=== PATIENT | male | born 1955 | race Caucasian/White ===

== ENCOUNTER 2024-02-21 04:43 | Inpatient (IN) | payer MEDICARE, BC, SELFPAY ==
[2024-02-21] VITALS (8 sets, daily range): BP systolic 125–167; BP diastolic 74–104; BMI 28.1; BMI 27.1
[2024-02-21] MEDS: DUONEB 3 ML INH ×3 (01:14→08:31)
[2024-02-21] MEDS: DECADRON 10 MG IV (01:30)
[2024-02-21 01:52] LABS: % Basophils 0.1 % (0-2); % Immature Granulocytes 0.4 % (0-0.5); % Lymphocytes 3.7 % (20.5-51.1); % Monocytes 5.8 % (1.7-9.3); Absolute Immature Granulocytes 0.1 10^3/uL (0-0.05); Absolute Lymphocytes 0.5 10^3/uL (1.2-3.4); Absolute Monocytes 0.8 10^3/uL (0.1-0.6); Absolute Neutrophils 12.5 10^3/uL (1.4-6.5); Hematocrit 42.9 % (39.0-52.0); Hemoglobin 14.6 g/dL (13.0-18.0); Mean Corpuscular Hgb 29.9 pg (27.0-31.0); Mean Corpuscular Volume 87.9 fL (80.0-94.0); Mean Platelet Volume 10.5 fL (7.4-10.4); Nucleated Red Blood Cells % 0 % (-); Platelet Count 240 10^3/uL (130-400); Red Blood Cell Count 4.88 10^6/uL (4.70-6.10); Red Cell Dist. Width 13.3 % (11.5-14.5); White Blood Cell Count 13.9 10^3/uL (4.8-10.8)
[2024-02-21 02:05] LABS: ALT (SGPT) 45 U/L (0-50); AST (SGOT) 43 U/L (17-59); Albumin 4.6 g/dl (3.5-5.0); Alkaline Phosphatase 89 U/L (38-126); Blood Urea Nitrogen 19 mg/dl (9-20); Calcium 10.1 mg/dl (8.4-10.2); Carbon Dioxide 24 mmol/L (22-30); Chloride 106 mmol/L (98-107); Estimated Creatinine Clearance 87 ml/min; Glucose 123 mg/dl (70-99); Potassium 4.4 mmol/L (3.5-5.1); Sodium 141 mmol/L (135-145); Total Bilirubin 0.3 mg/dl (0.2-1.3); Total Protein 7.3 g/dl (6.3-8.2); eGFR > 60.00
[2024-02-21 02:07] LABS: COVID-19 Antigen Negative (Negative)
--- NOTE | 2024-02-21 02:25 | ED.GENMED ---
History of Present Illness
General
Chief Complaint: Breathing Problem
Source: patient and spouse
Exam Limitations: none
Time Seen by Provider: 02/21/24 01:15
Nursing documentation reviewed up to this point in time: agreed with
Travel History
Have you had any contact with someone who has COVID-19?: No
Do you have any symptoms of coronavirus? Fever > 100 degrees, chills, cough, shortness of breath, sore throat, loss of taste or smell, muscle aches, or headache?: No
History of Present Illness
History of Present Illness:
68-year-old male shortness of breath cough for few days spouse had a URI with some fevers patient fever, uses neb x 3 today, without much relief has history of COPD not on oxygen or steroids chronically, sees pulmonary no longer smoking no calf pain
no chest pain
Past History
Past History
ED Past Medical History: Asthma, COPD and Hypercholesterolemia
ED Past Surgical History: Other (hernia repair)
Social History
Tobacco: Former smoker
Alcohol: None
Drug: None
Personal:
Living: with family
Employment: Employed
Family History
Family History: Other (Noncontributory)
Review of Systems
Review of Systems
All Other Systems: Not applicable
Constitutional: Denies fever
Respiratory: Reports cough and trouble breathing
Cardiac: Reports no symptoms
ABD/GI: Reports no symptoms
: Reports no symptoms
Musculoskeletal: Reports no symptoms
Skin: Reports no symptoms
Neurological: Reports no symptoms
Phy Exam
Physical Exam
Physical Exam:
Physical Exam
General: 68 male appears dyspneic retracting wheezing
Neck: No jaundice
Heart: Regular
Lungs: Wheezing right greater than left with
Abdomen: Nontender
Neuro: alert and oriented. no focal neurological deficits
Skin: no rash
Psychiatric: well kept. interactive and cooperative
Extremities: no edema. no calf tenderness.
Scores
Heart Failure Risk
Heart Failure Risk Score: Not Applicable
Course
Orders/Labs/Results
Orders:
Orders
02/21/24 01:12
Ipratropium/Albuterol Sulfate [Duoneb] 3 ml .ROUTE .STK-MED ONE
02/21/24 01:13
Ipratropium/Albuterol Sulfate [Duoneb] 3 ml INH R NOW ONE
02/21/24 01:15
Electrocardiogram (*1) Stat
Reason for Study: Other
Other Reason for Exam: pneumonia
Cardiac Monitoring- Treatment ONCE
EKG- Treatment ONCE
IV Insert/Care/Rem.- Treatment PRN
Dexamethasone Sod Phosphate [Decadron] 10 mg IV NOW STA
Ipratropium/Albuterol Sulfate [Duoneb] 3 ml INH R NOW STA
CR Chest Portable - 1 View Urgent
Comment:
Reason For Exam: SOB
Reason Study Needs to be Portable: Patient Unstable
02/21/24 01:26
COVID-19 Antigen Urgent
Source: Nasal Swab
Complete Blood Count/With Diff Urgent
Comprehensive Metabolic Panel Urgent
Influenza A+B Rapid Molecular Urgent
TRIXIE Source: Nasal Swab
Specimen Description:
Abnormal Lab Results
02/21/24
01:26
WBC 13.9 H 10^3/uL
(4.8-10.8)
MPV 10.5 H fL
(7.4-10.4)
Abs Immat Gran (auto) 0.1 H 10^3/uL
(0-0.05)
Absolute Neuts (auto) 12.5 H 10^3/uL
(1.4-6.5)
Absolute Lymphs (auto) 0.5 L 10^3/uL
(1.2-3.4)
Absolute Monos (auto) 0.8 H 10^3/uL
(0.1-0.6)
Neutrophils % 90.0 H %
(42.2-75.2)
Lymphocytes % 3.7 L %
(20.5-51.1)
Glucose 123 H mg/dl
(70-99)
02/21/24 01:26
02/21/24 01:26
Vital Signs
Initial and Last Documented VS:
Initial Vital Signs
Temp Pulse Resp BP Pulse Ox
98.3 F 102 28 167/86 93
02/21/24 00:53 02/21/24 00:53 02/21/24 00:53 02/21/24 00:53 02/21/24 00:53
Last Documented Vital Signs
Temp Pulse Resp BP Pulse Ox
98.6 F 94 17 153/104 93
02/21/24 01:10 02/21/24 02:00 02/21/24 02:00 02/21/24 02:00 02/21/24 02:00
MDM/Problems Addressed
Differential Diagnosis Includes:
COPD pneumonia pneumothorax less likely pulmonary
MDM/Problems Addressed:
Shortness of breath cough
Chronic conditions affecting care: COPD
Acute Exacerbation and/or Progression of Chronic Illness: COPD
*Radiology
Radiology exam reviewed: preliminary read by ED provider
*Pulse Oximetry
Patient hypoxic: yes
*EKG
Interpreted by ED Provider?: Yes
Interpretation: abnormal
Comparison EKG: no comparison EKG present
Heart Rate: 78
Rate: normal
Rhythm: sinus
Ischemia: non-specific ST changes
*Vault Attendant Interpretation
Rate: normal
Interpretation: normal
Heart Rate: 78
Rhythm: sinus
*Critical Care Note
Total Time (30-74mins, 75-104mins- exclusive of procedures): Not Applicable
Patient Management
Social determinants of health affecting care: Living situation
Discussion with other providers: Hospitalist
Escalation/DeEscalation of care consider admission/obs:
Patient with significant bronchospasm 3 nebs at home tachypneic tachycardic retracting, will require admission started on IV steroids supplemental oxygen
Update Note
Update Note:
Patient better after nebs and steroids still tachypneic requiring oxygen will require admission
ED Attending Note
-
Portions of this chart may have been created with voice recognition software.� Occasional wrong word or��sound alike� substitutions may have occurred due to the inherent limitations of voice recognition software.
Discharge Plan
Departure
Patient Disposition: Admit
Date of Disposition: 02/21/24
Time of Disposition: 02:28
Admit to: Med/Surg
Presentation/result/management discussed w/ accepting MD/DO: Hospitalist
Patient with high blood pressure during this ER visit?: Yes
Condition: Fair
Covid-19: Not Applicable
Discharge Problem:
Acute exacerbation of chronic obstructive pulmonary disease
Prescriptions:
No Action
simvastatin 40 MG tablet
40 mg PO QPM
Anoro Ellipta 1 EACH blister with device
1 puff inhalation DAILY
acetaminophen 500 MG tablet
1,000 mg PO Q6HPRN PRN (Reason: pain)
Rx Instructions:
Do not exceed >4000 mg daily.
Interventions
Interventions:
*Risk Screen - Suicide Last Done: 02/21/24 01:15
*General Assessment Last Done: 02/21/24 01:15
*Neglect/Abuse Screening Last Done: 02/21/24 01:15
*ED COVID-19 Vaccine History Last Done: 02/21/24 01:15
ED- Cardiac Assessment Last Done: 02/21/24 01:10
ED- Pulmonary Assessment Last Done: 02/21/24 01:10
Discharge Date and Time
Print Language: LUXEMBOURGISH
--- NOTE | 2024-02-21 05:05 | HPS.HSE ---
Family Physician
-
Family Physician: Sherwin Vargas
Chief Complaint
-
SOB and cough
History of Present Illness
68M former smoker HX COPD/Asthma, not on home O2 pw fever at home pe SoB and cough. He used home Nebs but no relief.
POS sick exposure to with URTI.
Productive cough; brownish sputum in AM, but clear in the evening
[place] better after Nebs and IV Decadron at ER
@ ER . POx low 90s and require 3 L O2
Medical History
Past Medical History
Past Medical History: Reports Asthma, COPD and Hypercholesterolemia
Past Surgical History: Reports None
Social History
Tobacco: Former Smoker
Alcohol: None
Drug: None
Personal:
Living: With Family
Family History
Family History: Not pertinent
Allergies / Home Medications
Allergies reflects when Allergies were last updated in [facility].
Home Medications with original date entered in [facility]
Allergy/Medication List:
Allergies
Allergy/AdvReac Type Severity Reaction Status Date / Time
No Known Allergies Allergy Verified 02/21/24 00:53
Home Medications
simvastatin 40 mg tablet 40 mg PO QPM 09/11/15
umeclidinium 62.5 mcg-vilanterol 25 mcg/actuation powdr for inhalation (Anoro Ellipta) 1 puff inhalation DAILY 11/04/20
acetaminophen 500 mg tablet 1,000 mg PO Q6HPRN PRN pain 02/21/24
Review of Systems
-
Constitutional: Reports No Symptoms
EENT: Reports No Symptoms
Respiratory: Reports See HPI
Cardiac: Reports No Symptoms
Abdomen/GI: Reports No Symptoms
: Reports No Symptoms
Musculoskeletal: Reports No Symptoms
Skin: Reports No Symptoms
Neurological: Reports No Symptoms
Endocrine: Reports No Symptoms
Hematologic/Lymphatic: Reports No Symptoms
Psych: Reports No Symptoms
Physical Exam
Vital Signs
Vital Signs
Temp Pulse Resp BP Pulse Ox
98.6 F 77 21 125/78 94
02/21/24 01:10 02/21/24 04:00 02/21/24 04:00 02/21/24 04:00 02/21/24 04:00
Physical Exam
General: No Apparent Distress, Comfortable and Conversant
HEENT: NormoCephalic and Moist mucous membranes
Respiratory: Wheezes (b/l expiratory phade ); No Rales
Cardiac: S1/S2 and Regular Rhythm; No Tachycardia
Breast: Deferred by me
GI: Soft, Non Tender, Non Distended and Normal Bowel Sounds
Rectal: Deferred by Provider
Genito-urinary: Deferred by me
Musculoskeletal: No Edema
Skin: Warm and Dry
Neuro: AO x 3
Psych: Calm
Laboratory Results
-
Laboratory Results
Total Bilirubin 0.3 mg/dl (0.2-1.3) 02/21/24 01:26
AST 43 U/L (17-59) 02/21/24 01:26
ALT 45 U/L (0-50) 02/21/24 01:26
Alkaline Phosphatase 89 U/L (38-126) 02/21/24 01:26
Data Reviewed
-
Diagnostic Radiology: Image Personally Visualized and interpreted
Lab Data: Labs Reviewed by me
Impression/Plan
-
Reviewed VS: afebrile HR hi 90s BP 150/105 RR 20-25 POx 93 % on 3 L
Data
WCC 13.9
nl CMP
NEG Covid
CXR my view : no gross CHF or PNA
ASSESSMENT & PLAN
AE COPD
Associated acute Hypoxic RI require NC O2 3 L
- NEG CXR in my view
- agree with IV decadron 4 mg q8
- DuoNeb qid and PRN
- Hold off ABx
- Pul consult
HLD
- cont simvastatin
DVT Px: LMWH
Code: Full
IP MS
[2024-02-21 05:55] LABS: % Basophils 0.1 % (0-2); % Eosinophils 0.1 % (0-6); % Immature Granulocytes 0.4 % (0-0.5); % Lymphocytes 1.9 % (20.5-51.1); % Monocytes 2.3 % (1.7-9.3); % Neutrophils 95.2 % (42.2-75.2); Absolute Immature Granulocytes 0.1 10^3/uL (0-0.05); Absolute Lymphocytes 0.3 10^3/uL (1.2-3.4); Absolute Monocytes 0.4 10^3/uL (0.1-0.6); Absolute Neutrophils 14.7 10^3/uL (1.4-6.5); Hematocrit 41.4 % (39.0-52.0); Hemoglobin 13.6 g/dL (13.0-18.0); Mean Corp Hgb Conc. 32.9 g/dL (33.0-37.0); Mean Corpuscular Volume 91.4 fL (80.0-94.0); Mean Platelet Volume 10.5 fL (7.4-10.4); Nucleated Red Blood Cells % 0 % (-); Platelet Count 218 10^3/uL (130-400); Red Blood Cell Count 4.53 10^6/uL (4.70-6.10); Red Cell Dist. Width 13.5 % (11.5-14.5); White Blood Cell Count 15.5 10^3/uL (4.8-10.8)
[2024-02-21 06:11] LABS: Blood Urea Nitrogen 18 mg/dl (9-20); Calcium 9.8 mg/dl (8.4-10.2); Carbon Dioxide 22 mmol/L (22-30); Chloride 109 mmol/L (98-107); Estimated Creatinine Clearance 100 ml/min; Glucose 138 mg/dl (70-99); Potassium 4.6 mmol/L (3.5-5.1); Sodium 137 mmol/L (135-145); eGFR > 60.00
[2024-02-21] MEDS: DECADRON 4 MG IV ×3 (08:19→23:43)
[2024-02-21] MEDS: SPIRIVA RESPIMAT 2.5 MCG INH (08:30)
[2024-02-21] MEDS: STRIVERDI RESPIMAT 2 PUFF INH (08:31)
--- NOTE | 2024-02-21 09:10 | CON.PUL ---
Consultation
Consultation Request
Date/Time Consultation Requested: 02/21/24-7 AM
Date/Time Consultation Performed: 02/21/24-7:30 AM
Requesting Provider: Hospitalist
Performing Provider: Dr. Nath
Reason for Consultation: shortness of breath
Medical History
-
Chief Complaint: Shortness of breath, COPD exacerbation
History of Present Illness:
68-year-old male with a history of COPD/asthma overlap last seen by Dr. Walls November 2022 maintained on Anoro, not inhaled steroids due to 'thrush', not on home oxygen presents with shortness of breath and cough and dyspnea-pulmonary consulted
for COPD exacerbation 02/21/24. He states that he has been ill for several days with chest congestion, green sputum production, difficulties mobilizing secretions, with exposure to who was sick with what sounds like a viral illness and had
progressive dyspnea on exertion. He denies any chest pain, chest tightness, mopped assist, abdominal pain, nausea, weakness or leg swelling.
Past Medical History
Past Medical History: None (COPD/asthma overlap. Recurrent thrush from ICS. Former mikvzj-24-dblr-year quit 34 years old. Hyperlipidemia.)
Social History
Tobacco: Former Smoker (24-bmjr-yusr quit 34 years old)
Alcohol: None
Drug: None
Personal:
Living: With Family
Occupational Exposures: No known asbestos exposure
Environmental Exposures: No known tuberculosis exposure
Family History
Family History: Reviewed & Not Pertinent
Allergies / Home Medications
Allergies
Allergy/AdvReac Type Severity Reaction Status Date / Time
No Known Allergies Allergy Verified 02/21/24 00:53
Home Medications
�Medication �Instructions �Recorded �Confirmed �Last Taken �Type
Vitamin C 1 packet PO DAILY 02/21/24 02/21/24 02/20/24 History
albuterol sulfate 2.5 mg/3 mL 2.5 mg inhalation R Q6HPRN PRN sob 02/21/24 02/21/24 02/20/24 History
(0.083 %) solution for nebulization
atorvastatin 40 mg tablet 40 mg PO HS 02/21/24 02/21/24 02/20/24 History
cholecalciferol (vitamin D3) 125 125 mcg PO DAILY 02/21/24 02/21/24 02/20/24 History
mcg (5,000 unit) tablet
umeclidinium 62.5 mcg-vilanterol 1 inh inhalation R DAILY 02/21/24 02/21/24 02/20/24 History
25 mcg/actuation powdr for
inhalation (Anoro Ellipta)
Review of Systems
-
Unable to Obtain full review of systems at this time due to: Other (Per HPI)
Vitals / Labs / Diagnostic Testing
Vital Signs
Temp Pulse Resp BP Pulse Ox
98.6 F 81 17 125/78 94
02/21/24 01:10 02/21/24 08:34 02/21/24 08:34 02/21/24 04:00 02/21/24 08:34
Lab Data
02/21/24 05:38
02/21/24 05:38
Microbiology
02/21/24 01:26 Nasal Swab Influenza Types A & B (DOMENICO) - Final
Negative for Influenza A & B, NAAT
Negative results must be combined with clinical observations
and patient history.
Nucleic Acid Amplification test (NAAT)performed on the
[employer] platform.
Diagnostic Testing:
Physical Exam
-
Exam:
Well-nourished and well-developed in no apparent distress
HEENT-atraumatic, normocephalic
Neck-supple, no JVD, no bruit
Heart-regular rate and rhythm-no murmurs, rubs or gallops
Chest with diminished breath sounds, prolonged expiratory time, expiratory wheezes and rhonchi and rare crackle at the base
Abdomen-soft, nontender, nondistended, no hepatosplenomegaly
Extremities-no cyanosis, clubbing, edema and good peripheral pulses
Integument-intact, no rashes, lesions or ecchymosis
Neurology-alert and oriented, nonfocal motor and sensory exam
Assessment
-
68-year-old male with a history of COPD/asthma overlap last seen by Dr. Walls November 2022 maintained on Anoro, not inhaled steroids due to 'thrush', not on home oxygen presents with shortness of breath and cough and dyspnea-pulmonary consulted
for COPD exacerbation 02/21/24.
COPD/asthma overlap with acute exacerbation
Leukocytosis-WBC 15.5
Hyperglycemia
Conditions present prior to admission:
COPD/asthma overlap.
Recurrent thrush from ICS.
Pulmonary nodules-negative PET scan and biopsy
Former bvsdks-12-aaav-year quit 34 years old.
Hyperlipidemia.
Hemorrhoids
Nasal polyposis
Diverticulitis
Hernia repair 1984. Right shoulder surgery 2018. Septoplasty.
Plan
Subacute decompensation related to probable viral exposure leading to COPD/asthma overlap with acute exacerbation
Supplemental oxygen as needed
Aspiration precautions
Mucolytic's
Antitussives
Decadron 4 mg IV every 8 hours
Nebulizers as needed
Outpatient Anoro-intolerant to ICS due to recurrent thrush
Sputum culture
Observe off antibiotics
Monitor blood sugar
Insulin supplementation as needed
DVT prophylaxis-on Lovenox
Nutrition
Early mobilization
Last seen by Dr. Walls 12/18/2022-recommend follow-up with full PFTs-patient reports 3 exacerbations yearly requiring steroids-consider addition of Biologics
Diagnostic data:
Chest x-ray 10/12-NAD
Chest x-ray 12/02/2023-NAD
Chest x-ray 02/21/2024-pending
CT chest 04/16/2022-slight decrease in previously biopsied lesion posterior base right lower lobe maximum diameter 1.6, interval decrease in the number of nearly subcentimeter nodules, no new suspicious nodules, minimal changes of centrilobular
emphysema
Pulmonary function testing 12/20/2014:FEV1 /FVC 41%, FEV1 1.47 L-42%, FVC 3.61 L to 79%. Total lung capacity 6.73-96%, residual volume 2.95 L-124%. DLCO 22.31-79%. DLCO/VA 82%. Severe airflow obstruction, no evidence for restriction. Possible air
trapping. Diffusion capacity near normal.
Spirometry 12/18/22- FVC 2.84 or 68%, FEV1 1.46 or 47%, Ratio 51.
Data Reviewed
-
PFT: Report reviewed by me
EKG: Report reviewed by me
Radiology: Image personally visualized and interpreted and Report reviewed by me
CT Scan: Image personally visualized and interpreted and Report reviewed by me
Labs: Labs reviewed by me
Old Records: Reviewed
Total Time Spent with Patient (in minutes): 50
[2024-02-21] MEDS: VENTOLIN NEBULES 2.5 MG INH ×3 (11:57→19:55)
--- NOTE | 2024-02-21 12:55 | W.PN.HOSP.TC ---
Today's Communication/Plan
-
Add antibiotics
Assessment / Plan
Assessment / Plan
Gen-AAOx3, NAD
HEENT-NC, AT, anicteric, clear oral mm
Neck-supple
CV-reg, no M, +S1/S2
Lungs-mild bilateral expiratory wheezing
Abd-soft, NT, ND
Ext-no edema
Musculoskeletal-no cyanosis, clubbing
Skin-warm and dry
Neuro-grossly non-focal
Psych-calm, cooperative
Acute hypoxic respiratory insufficiency -due to acute COPD exacerbation. Currently stable on 2 L nasal cannula, wean down as able. Chest x-ray clear.
Acute COPD exacerbation -add antibiotics. Continue nebs, steroids. Known to pulmonary. Cough and shortness of breath started on Wednesday. also ill. COVID and influenza negative.
Hyperlipidemia -continue atorvastatin.
Full code
Anticipated Discharge: 24 - 48 hours
Subjective/Interval History
-
Date of Service: February 21, 2024
Patient seen and examined. Feels slightly better today compared to yesterday. Still with cough.
Objective Data
-
Labs:
Laboratory Results
02/21/24 02/21/24
01:26 05:38
WBC 13.9 H 15.5 H
Hgb 14.6 13.6
Hct 42.9 41.4
Plt Count 240 218
Sodium 141 137
Potassium 4.4 4.6
Chloride 106 109 H
Carbon Dioxide 24 22
BUN 19 18
Creatinine 0.8 0.7
Glucose 123 H 138 H
Calcium 10.1 9.8
Total Bilirubin 0.3
AST 43
ALT 45
Alkaline Phosphatase 89
Vital Signs:
Vital Signs
Temp Pulse Resp BP Pulse Ox
98.6 F 107 14 125/78 94
02/21/24 01:10 04/01/24 12:30 02/21/24 12:30 02/21/24 04:00 02/21/24 12:30
I&O
02/20/24 02/21/24 02/22/24
06:59 06:59 06:59
Output Total 350 / 350
Balance -350 / -350
Review of Systems
-
History Source: Patient
All other systems: Reviewed and negative
[2024-02-21] MEDS: ZITHROMAX 500 MG PO (13:20)
--- NOTE | 2024-02-21 15:03 | PTCARENOTE ---
Received pt from ER via stretcher, accompanied by ER staff. Pt AAO x3, TOMAS well, ambulatory to bed, no c/o weakness/dizziness. VSS. On n c 3 lpm- pulse ox 96%, pt with (+) GAONA/tachypnea; occ dry, non-productive cough. Abd soft, rounded, to start
reg diet. Pt DTV; urinal at bedside. Afebrile; face flushed; skin intact. Oriented to 4East, currently resting in bed, no c/o. Will continue to monitor.
[2024-02-21] MEDS: FLUSH (NSS) 1 FLUSH IV (16:10)
[2024-02-21] MEDS: LIPITOR 40 MG PO (18:00)
[2024-02-21] MEDS: LOVENOX 40 MG SC (18:00)
[2024-02-22] MEDS: MUCINEX 600 MG PO ×3 (05:47→22:29)
[2024-02-22 06:08] LABS: % Basophils 0.1 % (0-2); % Immature Granulocytes 0.6 % (0-0.5); % Lymphocytes 4.4 % (20.5-51.1); % Monocytes 4.6 % (1.7-9.3); % Neutrophils 90.3 % (42.2-75.2); Absolute Immature Granulocytes 0.1 10^3/uL (0-0.05); Absolute Lymphocytes 0.7 10^3/uL (1.2-3.4); Absolute Monocytes 0.7 10^3/uL (0.1-0.6); Absolute Neutrophils 13.6 10^3/uL (1.4-6.5); Hemoglobin 14.1 g/dL (13.0-18.0); Mean Corp Hgb Conc. 32.8 g/dL (33.0-37.0); Mean Corpuscular Hgb 29.7 pg (27.0-31.0); Mean Corpuscular Volume 90.7 fL (80.0-94.0); Mean Platelet Volume 10.7 fL (7.4-10.4); Nucleated Red Blood Cells % 0 % (-); Platelet Count 246 10^3/uL (130-400); Red Blood Cell Count 4.74 10^6/uL (4.70-6.10); Red Cell Dist. Width 13.8 % (11.5-14.5)
[2024-02-22] MEDS: STRIVERDI RESPIMAT 2 PUFF INH (07:51)
[2024-02-22] MEDS: VENTOLIN NEBULES 2.5 MG INH ×4 (07:51→20:07)
[2024-02-22] MEDS: SPIRIVA RESPIMAT 2.5 MCG 2 PUFF INH (07:52)
[2024-02-22 08:11] VITALS: BP 133/73
[2024-02-22] MEDS: ZITHROMAX 500 MG PO (08:14)
[2024-02-22] MEDS: DECADRON 4 MG IV ×3 (08:14→23:34)
--- NOTE | 2024-02-22 09:19 | W.PN.HOSP.TC ---
Addendum entered and electronically signed by Gamaliel Haywood DO 02/22/24 14:01:
SIRS due to a noninfectious source, acute COPD exacerbation
Original Note:
Today's Communication/Plan
-
Add Acapella
Continue other measures
Assessment / Plan
Assessment / Plan
Gen-AAOx3, NAD
HEENT-NC, AT, anicteric, clear oral mm
Neck-supple
CV-reg, no M, +S1/S2
Lungs-mild bilateral expiratory wheezing
Abd-soft, NT, ND
Ext-no edema
Musculoskeletal-no cyanosis, clubbing
Skin-warm and dry
Neuro-grossly non-focal
Psych-calm, cooperative
Acute hypoxic respiratory insufficiency -due to acute COPD exacerbation. Currently stable on 2 L nasal cannula, wean down as able. Chest x-ray clear.
Acute COPD exacerbation -continue antibiotics. Add Acapella. Continue nebs, steroids. Known to pulmonary. Cough and shortness of breath started on Wednesday. also ill. COVID and influenza negative.
Hyperlipidemia -continue atorvastatin.
Full code
Anticipated Discharge: 24 - 48 hours
Subjective/Interval History
-
Date of Service: February 22, 2024
Patient seen and examined. Still complaining of cough, dyspnea on exertion.
Objective Data
-
Labs:
Laboratory Results
02/22/24
05:16
WBC 15.0 H
Hgb 14.1
Hct 43.0
Plt Count 246
Vital Signs:
Vital Signs
Temp Pulse Resp BP Pulse Ox
97.7 F 81 20 133/73 96
02/22/24 08:11 02/22/24 08:11 02/22/24 08:11 02/22/24 08:11 02/22/24 08:11
I&O
02/21/24 02/22/24 02/23/24
06:59 06:59 06:59
Intake Total 360 / 360
Output Total 350 / 350
Balance -350 / -350 360 / 360
Review of Systems
-
History Source: Patient
All other systems: Reviewed and negative
--- NOTE | 2024-02-22 09:24 | W.PN.PUL.V3 ---
Today's Communication / Plan
-
Wean oxygen
Increase activity
Continue Decadron without change
Azithromycin continues
Outpatient pulmonary mcpqxz-gt-htqtzrewqvipb towards Biologics as patient inhaled corticosteroid intolerant due to recurrent thrush
Assessment
-
68-year-old male with a history of COPD/asthma overlap last seen by Dr. Walls November 2022 maintained on Anoro, not inhaled steroids due to 'thrush', not on home oxygen presents with shortness of breath and cough and dyspnea-pulmonary consulted
for COPD exacerbation 02/21/24.
COPD/asthma overlap with acute exacerbation
Leukocytosis-WBC 15.5
Hyperglycemia
Conditions present prior to admission:
COPD/asthma overlap.
Recurrent thrush from ICS.
Pulmonary nodules-negative PET scan and biopsy
Former azyjoc-85-zbix-year quit 34 years old.
Hyperlipidemia.
Hemorrhoids
Nasal polyposis
Diverticulitis
Hernia repair 1984. Right shoulder surgery 2018. Septoplasty.
Plan
Subacute decompensation related to probable viral exposure leading to COPD/asthma overlap with acute exacerbation
Supplemental oxygen as needed-attempt to wean
Assess discharge supplemental oxygen needs
Aspiration precautions
Mucolytic's
Antitussives as needed
Decadron 4 mg IV every 8 hours-no change today
Nebulizers as needed
Outpatient Anoro-intolerant to ICS due to recurrent thrush-would discharge on Anoro
Sputum culture
Observe off antibiotics
Monitor blood sugar
Insulin supplementation as needed
DVT prophylaxis-on Lovenox
Nutrition
Early mobilization
Reviewed with nursing as well as primary service
Consideration towards Biologics such as Dupixent as patient inhaled corticosteroid intolerant due to recurrent thrush
Last seen by Dr. Walls 12/18/2022-recommend follow-up with full PFTs-patient reports 3 exacerbations yearly requiring steroids-consider addition of Biologics
Diagnostic data:
Chest x-ray 11//21-NAD
Chest x-ray 12/02/2023-NAD
Chest x-ray 02/21/2024-pending
CT chest 04/16/2022-slight decrease in previously biopsied lesion posterior base right lower lobe maximum diameter 1.6, interval decrease in the number of nearly subcentimeter nodules, no new suspicious nodules, minimal changes of centrilobular
emphysema
Pulmonary function testing 12/20/2014:FEV1 /FVC 41%, FEV1 1.47 L-42%, FVC 3.61 L to 79%. Total lung capacity 6.73-96%, residual volume 2.95 L-124%. DLCO 22.31-79%. DLCO/VA 82%. Severe airflow obstruction, no evidence for restriction. Possible air
trapping. Diffusion capacity near normal.
Spirometry 12/18/22- FVC 2.84 or 68%, FEV1 1.46 or 47%, Ratio 51.
Subjective Data
-
Date of Service:
Date of Service: February 22, 2024
Chief Complaint: Pulmonary Follow Up and Dyspnea Follow Up
Subjective:
Still with significant wheezing, dyspnea on exertion, minimal cough, no chest pain or abdominal pain
Review of Systems
General: Other (Per HPI)
Objective Data
Data Reviewed
Vital Signs / I&O:
Vital Signs
Temp Pulse Resp BP Pulse Ox
97.7 F 81 20 133/73 96
02/22/24 08:11 02/22/24 08:11 02/22/24 08:11 02/22/24 08:11 02/22/24 08:11
Intake and Output
02/21/24 02/22/24 02/23/24
06:59 06:59 06:59
Intake Total 360 / 360
Output Total 350 / 350
Balance -350 / -350 360 / 360
SaO2: 96
Nasal Cannula flow liters per minute: 2
Physical Exam
General: Respiratory Distress (n) and Comfortable
HEENT: Normocephalic, Anicteric and Moist Mucous Membranes
Cardiovascular: Regular Rhythm and Murmur (n)
Respiratory: Wheeze (Expiratory), Crackles (Rare basilar), Rhonchi ( few expiratory), Non-Labored Respirations, Accessory Resp Muscle Use (n) and Stridor (n)
GI: Soft, Non Distended and Non Tender
Neurology: Awake, Alert and No Motor Deficits
Skin: Warm, Good Color, Cyanosis (n), Jaundice (n) and Rash (n)
Labs/Micro/Reports
Lab Data
02/22/24 05:16
02/21/24 05:38
Microbiology
02/21/24 01:26 Nasal Swab Influenza Types A & B (DOMENICO) - Final
Negative for Influenza A & B, NAAT
Negative results must be combined with clinical observations
and patient history.
Nucleic Acid Amplification test (NAAT)performed on the
[employer] platform.
--- NOTE | 2024-02-22 13:42 | PN.CDI ---
CDI
- -
CDI:
Physician Documentation Request
Admit Date: 02/21/24 04:43
Dear Doctor Yobany,
Please review the following and provide your response in the progress notes.
Clinical Indicators:
- / PN 'Acute COPD exacerbation'
- 02/18 Admission: WBC 13.9, HR 90-100's, RR 20s
- IV abx Azithromycin started
- 02/20 H&P 'fever at home pe SoB and cough...POS sick exposure to with URTI'
Please clarify which of the following most accurately describes the status of the patient's infection:
Sepsis due to URI
- Systemic manifestations of infection, with 2 or more SIRS criteria which include:
- Fever >100.4 degrees F or hypothermia < 96.8 degrees F
- Leukocytosis - WBC > 12,000 or leukopenia - WBC < 4,000 or > 10% bands
- Tachycardia > 90 beats per minute
- Tachypnea - RR > 20 breaths per minute or PaCO2 , 32mmHg
Source: Merck Manual 2012
- Indicate the known or suspected organism
- Indicate the known or suspected underlying infection, such as UTI, pneumonia or cellulitis
- Indicate if a suspected bacterial infection of unknown source
- Indicate if associated with an implanted device such as a F/C, PICC line, orthopedic hardware, etc.
SIRS due to a non-infectious source
Other
Use of terms such as suspected, likely, concern for, or probable (associated with a specific diagnosis that is being evaluated, monitored, or treated as if it exists) are acceptable and can be coded in the inpatient setting, when documented at the
time of discharge.
Thank you,
Yair Rasmussen RN
CDI Specialist
Please use your independent medical judgment in providing your response.
[2024-02-22 16:07] VITALS: BP 98/57
[2024-02-22] MEDS: LOVENOX 40 MG SC (17:06)
[2024-02-22] MEDS: LIPITOR 40 MG PO (17:06)
[2024-02-22 23:00] VITALS: BP 144/83
[2024-02-22] MEDS: FLUSH (NSS) 2 FLUSH IV (23:35)
[2024-02-23] MEDS: SPIRIVA RESPIMAT 2.5 MCG 2 PUFF INH (07:26)
[2024-02-23] MEDS: STRIVERDI RESPIMAT 2 PUFF INH (07:27)
[2024-02-23] MEDS: VENTOLIN NEBULES 2.5 MG INH ×2 (07:28→11:25)
[2024-02-23 07:30] VITALS: BP 137/73
[2024-02-23] MEDS: DECADRON 4 MG IV (08:32)
[2024-02-23] MEDS: FLUSH (NSS) 1 FLUSH IV (08:32)
[2024-02-23] MEDS: ZITHROMAX 500 MG PO (08:32)
[2024-02-23] MEDS: MUCINEX 600 MG PO (08:32)
--- NOTE | 2024-02-23 08:58 | W.PN.PUL.V3 ---
Today's Communication / Plan
-
Prednisone taper
Assess discharge supplemental oxygen needs
Outpatient pulmonary evaluation
Assessment
-
68-year-old male with a history of COPD/asthma overlap last seen by Dr. Walls November 2022 maintained on Anoro, not inhaled steroids due to 'thrush', not on home oxygen presents with shortness of breath and cough and dyspnea-pulmonary consulted
for COPD exacerbation 02/21/24.
COPD/asthma overlap with acute exacerbation
Leukocytosis-WBC 15.5
Hyperglycemia
Conditions present prior to admission:
COPD/asthma overlap.
Recurrent thrush from ICS.
Pulmonary nodules-negative PET scan and biopsy
Former czmaoc-[id number]-year quit 34 years old.
Hyperlipidemia.
Hemorrhoids
Nasal polyposis
Diverticulitis
Hernia repair 1984. Right shoulder surgery 2018. Septoplasty.
Plan
Subacute decompensation related to probable viral exposure leading to COPD/asthma overlap with acute exacerbation
Continue supplemental oxygen as needed-attempt to wean-rest and exercise oximetry yesterday on room air-desaturation jenny [id number]%-may not require home oxygen
Aspiration precautions continue
Mucolytic's
Antitussives as needed
Decadron 4 mg IV every 8 hours-changed to prednisone 40 mg daily with slow taper
Nebulizers as needed
Outpatient Anoro-intolerant to ICS due to recurrent thrush-would discharge on Anoro
Sputum culture-unable to produce
Azithromycin continues
Monitor blood sugar
Insulin supplementation as needed
DVT prophylaxis-on Lovenox
Nutrition
Early mobilization
Reviewed with nursing as well as primary service
Consideration towards Biologics such as Dupixent as patient inhaled corticosteroid intolerant due to recurrent thrush
Last seen by Dr. Walls 12/18/2022-recommend follow-up with full PFTs-patient reports 3 exacerbations yearly requiring steroids-consider addition of Biologics
Diagnostic data:
Chest x-ray 11//21-NAD
Chest x-ray 12/02/2023-NAD
Chest x-ray 02/21/2024-pending
CT chest 04/16/2022-slight decrease in previously biopsied lesion posterior base right lower lobe maximum diameter 1.6, interval decrease in the number of nearly subcentimeter nodules, no new suspicious nodules, minimal changes of centrilobular
emphysema
Pulmonary function testing 12/20/2014:FEV1 /FVC 41%, FEV1 1.47 L-42%, FVC 3.61 L to 79%. Total lung capacity 6.73-96%, residual volume 2.95 L-124%. DLCO 22.31-79%. DLCO/VA 82%. Severe airflow obstruction, no evidence for restriction. Possible air
trapping. Diffusion capacity near normal.
Spirometry 12/18/22- FVC 2.84 or 68%, FEV1 1.46 or 47%, Ratio 51.
Subjective Data
-
Date of Service:
Date of Service: February 23, 2024
Chief Complaint: Pulmonary Follow Up and Dyspnea Follow Up
Subjective:
Overall feels slightly better, less wheezy, still has dyspnea exertion, no chest pain, productive cough or congestion
Review of Systems
General: Other (Per HPI)
Objective Data
Data Reviewed
Vital Signs / I&O:
Vital Signs
Temp Pulse Resp BP Pulse Ox
97.7 F 76 16 137/73 93
02/23/24 07:30 02/23/24 07:37 02/23/24 07:37 02/23/24 07:30 02/23/24 08:30
Intake and Output
02/22/24 02/23/24 02/24/24
06:59 06:59 06:59
Intake Total 360 / 360 420 / 420
Balance 360 / 360 420 / 420
SaO2: 93
Nasal Cannula flow liters per minute: 2
Physical Exam
General: Respiratory Distress (n) and Comfortable
HEENT: Normocephalic, Anicteric and Moist Mucous Membranes
Cardiovascular: Regular Rhythm and Murmur (n)
Respiratory: Wheeze (Expiratory), Crackles (Rare basilar), Rhonchi ( few expiratory), Non-Labored Respirations, Accessory Resp Muscle Use (n) and Stridor (n)
GI: Soft, Non Distended and Non Tender
Neurology: Awake, Alert and No Motor Deficits
Skin: Warm, Good Color, Cyanosis (n), Jaundice (n) and Rash (n)
Labs/Micro/Reports
Lab Data
02/22/24 05:16
02/21/24 05:38
Microbiology
02/21/24 20:52 Sputum Gram Stain - Preliminary
02/21/24 01:26 Nasal Swab Influenza Types A & B (DOMENICO) - Final
Negative for Influenza A & B, NAAT
Negative results must be combined with clinical observations
and patient history.
Nucleic Acid Amplification test (NAAT)performed on the
[employer] platform.
--- NOTE | 2024-02-23 09:59 | W.PN.HOSP.TC ---
Today's Communication/Plan
-
Ambulatory pulse ox on room air
Discharge
Assessment / Plan
Assessment / Plan
Gen-AAOx3, NAD
HEENT-NC, AT, anicteric, clear oral mm
Neck-supple
CV-reg, no M, +S1/S2
Lungs-mild bilateral expiratory wheezing
Abd-soft, NT, ND
Ext-no edema
Musculoskeletal-no cyanosis, clubbing
Skin-warm and dry
Neuro-grossly non-focal
Psych-calm, cooperative
Acute hypoxic respiratory insufficiency -due to acute COPD exacerbation. Currently stable on 2 L nasal cannula, wean down as able. Chest x-ray clear. Check ambulatory pulse ox on room air.
Acute COPD exacerbation -continue antibiotics. Continue Acapella. Continue nebs, steroids. Known to pulmonary. Cough and shortness of breath started on Wednesday. also ill. COVID and influenza negative.
Overall clinically improving.
Hyperlipidemia -continue atorvastatin.
Full code
Dispo -possible discharge later today if he remains stable. Outpatient follow-up with PCP and pulmonary.
32 minutes spent in discharge process.
Anticipated Discharge: Today
Subjective/Interval History
-
Date of Service: February 23, 2024
Patient seen and examined. Overall feeling better. No complaints.
Objective Data
-
Vital Signs:
Vital Signs
Temp Pulse Resp BP Pulse Ox
97.7 F 76 16 137/73 93
02/23/24 07:30 02/23/24 07:37 02/23/24 07:37 02/23/24 07:30 02/23/24 08:58
I&O
02/22/24 02/23/24 02/24/24
06:59 06:59 06:59
Intake Total 360 / 360 420 / 420
Balance 360 / 360 420 / 420
Review of Systems
-
History Source: Patient
All other systems: Reviewed and negative
--- NOTE | 2024-02-23 10:04 | W.DS.TRANS ---
DC Summary - [employer]
-
Discharge Instructions:
Discharge Diagnosis/Procedures Acute COPD exacerbation
Diet Regular
Activity As tolerated
Driving Restrictions As prior to admission
Bathing Restrictions None
Instructions:
Stand-Alone Forms:
Changes to Home Medications: No
Discharge Medications:
DC Medications w/original date entered in [facility]
albuterol sulfate 2.5 mg/3 mL (0.083 %) solution for nebulization 2.5 mg inhalation R [id number] PRN sob 02/21/24
atorvastatin 40 mg tablet 40 mg PO HS High Cholesterol 02/21/24
cholecalciferol (vitamin D3) 125 mcg (5,000 unit) tablet 125 mcg PO DAILY Supplement 02/21/24
umeclidinium 62.5 mcg-vilanterol 25 mcg/actuation powdr for inhalation (Anoro Ellipta) 1 inh inhalation R DAILY Lung/Breathing Issues 02/21/24
albuterol sulfate 90 mcg/actuation aerosol inhaler 2 puff inhalation TIDPRN PRN shortness of breath 02/22/24
atorvastatin 40 mg tablet 40 mg PO QPM #0 tabs 02/23/24
azithromycin 250 mg tablet 500 mg (2 x 250 mg) PO DAILY #2 tabs 02/23/24
guaifenesin 600 mg tablet, extended release 12 hr 600 mg PO Q12 #0 tabs 02/23/24
prednisone 10 mg tablet 10 mg PO DIRECTED #45 tabs 02/23/24
Home Medication Changes
Pending Results: No
--- NOTE | 2024-02-23 10:45 | CM ---
Addendum entered by Kiara Farley 02/23/24 10:47:
IMM verbally completed-copy provided
Original Note:
CM met with pt bedside
Pt resides with his spouse in a 2[facility]- he notes 0STE and full flight to 2nd floor
Pt notes independence with his ADLs
Denies use of DMEs and hx with VN/SNF
PCP- Isidro Vargas
Rx- [facility]
Discharge order noted
Discussion with respiratory- per home oxygen eval, pt does not qualify
No other dc needs noted
Discharge Disposition- home, no needs- spouse transport
[2024-02-23 11:49] VITALS: BP 138/75
== END 2024-02-23 12:39 | disposition home or self-care (01) | DRG 191 ==
LOC: 4 EAST ACU 04:43
PROVIDERS: Nurse Practitioner Family; ADMITTING PHYSICIAN Internal Medicine; ATTENDING PHYSICIAN Hospitalist; EMERGENCY PHYSICIAN Emergency Medicine; FAMILY PHYSICIAN Family Medicine; OTHER PHYSICIAN Internal Medicine Critical Care Medicine
DX: J44.1 Chronic obstructive pulmonary disease with (acute) exacerbation (principal); R65.10 Systemic inflammatory response syndrome (SIRS) of non-infectious origin without acute organ dysfunction; R06.89 Other abnormalities of breathing; D72.829 Elevated white blood cell count, unspecified; E78.00 Pure hypercholesterolemia, unspecified; R09.02 Hypoxemia; B37.9 Candidiasis, unspecified; R73.9 Hyperglycemia, unspecified; Z87.891 Personal history of nicotine dependence; Z87.19 Personal history of other diseases of the digestive system; Z11.52 Encounter for screening for COVID-19
CPT/HCPCS: 71045; 80048; 80053; 85025; 87070; 87205; 87502; 87811; 93005; 94640; 96374; 99285

== ENCOUNTER → 2024-10-03 06:49 | Outpatient (REF) | payer MEDICARE, BC, SELFPAY | LOC: MRI 06:49 | PROVIDERS: ATTENDING PHYSICIAN Physician Assistant; FAMILY PHYSICIAN Family Medicine | DX: M54.14 Radiculopathy, thoracic region (principal) | CPT/HCPCS: 72146 ==

== ENCOUNTER → 2025-10-03 06:19 | Day surgery (SDC) | payer MEDICARE, BC, SELFPAY | LOC: GI 06:19 | PROVIDERS: ATTENDING PHYSICIAN Internal Medicine Gastroenterology | DX: K57.30 Diverticulosis of large intestine without perforation or abscess without bleeding (principal); K64.8 Other hemorrhoids; R19.5 Other fecal abnormalities | CPT/HCPCS: G0105 ==

== ENCOUNTER → 2025-10-06 09:03 | Outpatient (REF) | payer MEDICARE, BC, SELFPAY | LOC: PAVMRI 09:03 | PROVIDERS: ATTENDING PHYSICIAN Physician Assistant Surgical; FAMILY PHYSICIAN Family Medicine | DX: M25.551 Pain in right hip (principal); R20.0 Anesthesia of skin | CPT/HCPCS: 73721 ==